=== PATIENT | female | born 1975 | race Caucasian/White ===

== ENCOUNTER 2017-07-05 18:51 | Emergency (ER) | payer BC ==
[2017-07-05] MEDS ORDERED: Oseltamivir 75 MG CAP ONE (19:12)
== END 2017-07-05 19:15 | disposition home or self-care (01) ==
LOC: BURERS 18:51
DX: J11.1 Influenza due to unidentified influenza virus with other respiratory manifestations (principal)
CPT/HCPCS: 99283